=== PATIENT | male | born 1985 | race Caucasian/White ===

== ENCOUNTER 2018-12-28 09:09 | Emergency (ER) | payer BC ==
[~2018-12-28] VITALS: Ht 170.2 cm; Wt 96.6 kg
[2018-12-28] MEDS ORDERED: LAMICTAL100 MG PO (09:14)
[2018-12-28 09:43] LABS: AMP/METHAMP Negative (Negative); BARBITURATES Negative (Negative); BENZODIAZEPINES Negative (Negative); COCAINE Negative (Negative); METHADONE Negative (Negative); OPIATES Negative (Negative); PCP Negative (Negative)
[2018-12-28 09:45] LABS: ABSOLUTE NEUTROPHILS 6.3 thou/uL (1.4-8.2); BASOPHILS 0.4 % (0.0-2.0); EOSINOPHILS 1.5 % (0.0-3.0); HEMATOCRIT 42.8 % (42.0-52.0); HEMOGLOBIN 14.4 gm/dL (14.0-18.0); LYMPHOCYTES 14.4 % (24.0-44.0); MCH 29.9 pg (26.0-34.0); MCHC 33.6 g/dL (28.0-37.0); MCV 88.9 fL (80.0-100.0); MONOCYTES 5.3 % (1.0-8.0); PLATELET COUNT 254 thou/uL (150-400); POLYS 78.4 % (36.0-66.0); RBC 4.81 mil/uL (4.50-6.00); RDW 13.6 % (10.5-14.5); WBC 8.1 thou/uL (4.0-11.0)
[2018-12-28 09:49] LABS: CALCIUM 9.3 mg/dL (8.5-10.1); CREATININE 1.1 mg/dL (0.7-1.3); POTASSIUM 3.8 mmol/L (3.5-5.1)
[2018-12-28 09:56] LABS: TOTAL BILIRUBIN 0.6 mg/dL (<0.1-1.0); TOTAL PROTEIN 7.7 g/dL (6.4-8.2)
[2018-12-28] MEDS ORDERED: LAMOTRIGINE150 MG PO (10:13)
[2018-12-28] MEDS ORDERED: ATIVAN1 MG PO (10:13)
[2018-12-28 10:59] VITALS: BP 107/71
== END 2018-12-28 11:01 | disposition home or self-care (01) ==
LOC: ER 09:09
PROVIDERS: Emergency Medicine
DX: G40.909 Epilepsy, unspecified, not intractable, without status epilepticus (principal); Z88.8 Allergy status to other drugs, medicaments and biological substances